=== PATIENT | female | born 1940 | race Caucasian/White ===

== ENCOUNTER 2022-03-12 18:25 | Observation (INO) | payer MEDICARE, SELFPAY ==
[2022-03-12] VITALS (18 sets, daily range): BP systolic 104–126; BP diastolic 37–98; PULSE 60–70; RESP 14–23; TEMP 36.4–37.1; O2SAT 91–100; BMI 39.4
--- NOTE | ~2022-03-12 | CT_ITS ---
EXAMINATION: CT brain wo con DATE: 03/12/2022 18:48 INDICATION: Left facial weakness. Cerebral vascular accident. TECHNIQUE: Computed tomography (CT) of the head was performed without intravenous contrast. The mA wa s adjusted according to patient size. Iterative reconstruction technique was employed. The dose-lengt h product was 605.33 mGy-cm. COMPARISON: None FINDINGS: There are scattered areas of low attenuation in the cerebral white matter. There is no intr acranial hemorrhage, acute infarction, or abnormal intracranial mass lesion. The ventricles are christina l in size. There is mild mucosal thickening in the paranasal sinuses. There are likely changes of ocu lar lens replacement surgeries. The mastoid air cells are normal. IMPRESSION: 1. Mild nonspecific cerebral white matter disease, which likely represents chronic small vessel ische arnie disease. Reviewed, dictated and finalized at location A. IMPRESSION: 1. Mild nonspecific cerebral white matter disease, which likely represents belt turner halie small vessel ischemic disease.
--- NOTE | ~2022-03-12 | XR_ITS ---
EXAMINATION: XR chest 1V portable DATE: 03/12/2022 19:04 INDICATION: Cerebrovascular accident. TECHNIQUE: A single frontal view of the chest was obtained. COMPARISON: None. FINDINGS: Calcified right lung nodules and calcified right hilar lymph nodes are consistent with old granulomas disc disease. There is a 1 cm nodule in right midlung zone. No pleural effusion or pneumot horax. There is mild elevation of right hemidiaphragm. The heart size is normal. There are changes of aortic valve replacement and coronary artery bypass grafting. There is a left chest wall pacer with leads in the right atrium and right ventricle. Retained epicardial pacer wires are noted. IMPRESSION: 1. 1 cm nodule in right midlung zone, which is indeterminate for malignancy. Noncontrast chest CT is recommended. Reviewed, dictated and finalized at location A. IMPRESSION: 1. 1 cm nodule in right midlung zone, which is indeterminate for malignancy. N oncontrast chest CT is recommended.
--- NOTE | ~2022-03-12 | CT_ITS ---
. EXAMINATION: CTA brain carotid DATE: 03/12/2022 19:54 INDICATION: Left facial weakness. TECHNIQUE: Computed tomographic angiography (CTA) of the head was performed with 100 mL Omnipaque-350 intravenous contrast. CTA of the neck was performed with intravenous contrast. Automated exposure co ntrol and iterative reconstruction technique were employed. The dose-length product was 980.92 mGy-cm . Maximum intensity projection and volume rendered 3D-reconstructions were created by the [employer] t on a separate workstation. COMPARISON: Head CT 03/12/2022 FINDINGS: HEAD CTA: There are scattered areas of low attenuation in the cerebral white matter. There is no intr acranial hemorrhage, acute infarction, or abnormal intracranial mass lesion. The ventricles are christina l in size. There are likely changes of ocular lens replacement surgeries. There is mild mucosal thick ening in the paranasal sinuses. The mastoid air cells are normal. Left vertebral artery is dominant. There is no significant stenosis of basilar artery or the posterior cerebral arteries. The posterior communicating arteries are normal. There is no significant stenosis of the intracranial internal tan tid arteries or anterior or middle cerebral arteries. Anterior communicating artery is normal. There is no aneurysm. NECK CTA: The visualized portions of the lung apices demonstrate bandlike scarring in right upper lob e. There is mild mediastinal lymphadenopathy, likely reactive. There is no significant stenosis of th e vertebral arteries. There is plaque in the proximal internal carotid arteries. There is 6% stenosis of the proximal right internal carotid artery relative to normal distal artery lumen diameter (NASCE T criteria). There is 0% stenosis of the proximal left internal carotid artery relative to normal dis artery lumen diameter. There is severe cervical spondylosis. There is a chronic burst fracture of T3. IMPRESSION: 1. Mild nonspecific cerebral white matter disease, which likely represents chronic small vessel ische arnie disease. 2. No aneurysm or significant intracranial arterial stenosis. 3. 6% stenosis of the proximal right internal carotid artery relative to normal distal artery lumen d iameter (NASCET criteria). 4. 0% stenosis of the proximal left internal carotid artery relative to normal distal artery lumen d iameter. Reviewed, dictated and finalized at location A. IMPRESSION: 1. Mild nonspecific cerebral white matter disease, which likely represents under water assistant halie small vessel ischemic disease. 2. No aneurysm or significant intracranial arterial stenosis. 3. 6% stenosis of the proximal right internal carotid artery relative to normal distal artery lumen diameter (NASCET criteria). 4. 0% stenosis of the proximal left internal carotid artery relative to normal distal artery lumen diameter.
--- NOTE | 2022-03-12 18:36 | ECG_ITS ---
Measurements Intervals [place] Rate: 61 P: [place]: 0 QRS: -66 QRSD: 183 T: 85 QT: 504 QTc: 510 Interpretive Statements PROBABLE ELECTRONIC VENTRICULAR PACEMAKER ABNORMAL RHYTHM ECG NO PREVIOUS ECG AVAILABLE FOR COMPARISON Electronically Signed On 03-13-2022 13:34:50 CDT by Joycelyn Villagomez M.D.
[2022-03-12 18:37] LABS: Glucose Point of Care 148 mg/dl (65-105)
[2022-03-12 19:05] LABS: Basophils Absolute Auto 0.1 K/mm3 (0.0-0.1); Basophils Percent Auto 0.7 % (0.2-1.2); Eosinophils Absolute Auto 0.4 K/mm3 (0-0.3); Eosinophils Percent Auto 4.8 % (0-4.4); Hematocrit 32.6 % (37.0-47.0); Hemoglobin 10.4 g/dL (12.0-15.0); Immature Granulocyte Absolute 0.11 K/mm3 (0.00-0.031); Immature Granulocyte Percent A 1.3 % (0-0.5); Lymphocytes Absolute Auto 1.65 K/mm3 (0.9-3.2); Lymphocytes Percent Auto 19.3 % (18.3-44.2); Mean Corpuscular HGB Conc 31.9 g/dl (32-36); Mean Corpuscular Hemoglobin 29.6 pg (26-34); Mean Corpuscular Volume 92.9 fl (80-100); Mean Platelet Volume 9.5 fl (7.4-10.4); Monocytes Absolute Auto 0.9 K/mm3 (0.1-0.6); Monocytes Percent Auto 10.3 % (2.6-8.5); Neutrophils Absolute Auto 5.5 K/mm3 (1.3-6.7); Neutrophils Percent Auto 63.6 % (45.5-73.1); Platelet Count Result 267 k/mm3 (150-375); Red Blood Count 3.51 M/mm3 (4.2-5.4); Red Cell Distribution Width 14.1 % (11.5-14.5); White Blood Count 8.6 K/mm3 (4.5-10.0)
[2022-03-12 19:16] LABS: Alanine Aminotransferase 23 U/L (6-35); Albumin Level 3.2 g/dL (3.5-5.1); Alkaline Phosphatase 95 U/L (38-126); Anion Gap 9 mmol/L (8-16); Aspartate Amino Transferase 63 U/L (14-36); Bilirubin,Total 0.8 mg/dL (0.2-1.3); Blood Urea Nitrogen 22 mg/dL (7-17); Calcium 8.7 mg/dL (8.4-10.2); Carbon Dioxide 24 mmol/L (22-30); Chloride 100 mmol/L (98-107); Estimated Glomerular Filt Rate 48; Glucose 134 mg/dL (65-110); Potassium 4.5 mmol/L (3.4-5.0); Sodium 133 mmol/L (137-145)
--- NOTE | 2022-03-12 19:20 | PC.NURSE ---
Report received from YOSELYN Reynaga. Assumed care of patient at this time.
[2022-03-12 19:22] LABS: INR 1.1; Prothrombin Time 13.3 Seconds (11.1-14.7)
--- NOTE | 2022-03-12 19:22 | ED.GENADULT ---
HPI - General Adult General Chief complaint: Neuro Symptoms/Deficit Stated complaint: RESOLVED TIA? Time Seen by Provider: 03/12/22 18:58 History of Present Illness HPI narrative: 81-year-old female present to the emergency department for evaluation of some left-sided facial droop. Patient does have a prior history of TIA approximately 10 years ago. Patient resides at a local senior care. When the nurse came to check on the patient she noticed that the patient did have a minor left-sided facial droop. Patient was unaware of the facial droop. This occurred at approximately 430. When patient's family arrived they also agreed the patient does have some facial droop. No other neurologic deficit was noted. Patient denies any complaints. Patient does have some weakness of the left lower leg secondary to pain from a recent hip replacement. Patient states this morning she did receive a full baby aspirin from a senior care. Patient does have history of previous TIA and does have history of coronary artery disease. Related Data Allergies Allergy/AdvReac Type Severity Reaction Status Date / Time meperidine [From Demerol] Allergy Unknown Verified 03/09/22 17:27 Review of Systems Review of Systems: CONSTITUTIONAL: Denies fever, chills, or sweats. EYES: Denies visual changes, redness, or discharge. ENT: Denies rhinorrhea, congestion, sore throat, or otalgia. CARDIOVASCULAR: Denies chest pain, palpitations, or edema. RESPIRATORY: Denies cough or dyspnea. GASTROINTESTINAL: Denies abdominal pain, nausea, vomiting, or diarrhea. GENITOURINARY: Denies dysuria or hematuria. SKIN: Denies rash or itching. MUSCULOSKELETAL: Denies back pain, joint pain, or myalgia. NEUROLOGIC: See HPI [facility] Past Medical History Medical History (Updated 03/12/22 @ 22:11 by Kenny Gary MD) Anemia CAD (coronary artery disease) CKD (chronic kidney disease) GERD (gastroesophageal reflux disease) HLD (hyperlipidemia) HTN (hypertension) Osteoarthritis (arthritis due to wear and tear of joints) Surgical History Surgical History (Updated 03/10/22 @ 10:35 by Teto Shin MD) H/O aortic valve replacement Social History Social History Smoking status: Never smoker Exam Narrative: APPEARANCE: Well appearing, no pain, no distress, well-nourished. HEAD: normocephalic, atraumatic. EYES: PERRLA/EOMI, conjunctivae clear. NOSE: Normal no drainage EARS:TMS clear with good light reflex. NECK: Supple. No adenopathy, no masses. RESPIRATORY: Airway patent, respirations nonlabored. Clear to auscultation bilaterally, no rales, rhonchi, wheezing. CARDIOVASCULAR: Regular rate and rhythm without murmurs rubs or gallops. ABDOMINAL: Soft, nontender, nondistended, normal bowel sounds MUSCULOSKELETAL: Moves all extremities. Strength/ROM intact, No edema, No calf tenderness. NEURO: Alert. Cranial nerves II through XII intact. Minimal left-sided facial droop associated with the left lateral mouth. Patient has a normal smile but when her face is at rest patient does have decreased wrinkles around the left side of the mouth. Otherwise intact exam. SKIN: Warm, dry. Normal Color PSYCHIATRIC: Normal affect/mood. Course Course Emergency Course: Patient does still have very minimal left-sided facial droop which manifests as decreased wrinkles on the left side of her mouth. When patient smiles she has no obvious deficit. Family had requested transfer to [place]. I discussed the case with Dr Lira and patient was accepted for transfer because they felt that our facility would be able to do the necessary TIA work-up. Patient was updated on the feedback from [facility] and they were comfortable with the plan for admission at our facility. Neurology was consulted. Case was discussed with the hospitalist and patient was accepted for admission. Vital Signs Vital signs: Vital Signs Temperature 98.7 F 03/12/22 18:31 Pulse Rate
[2022-03-12 19:28] LABS: Troponin I 0.016 ng/mL (0.000-0.034)
--- NOTE | 2022-03-12 19:41 | PC.NURSE ---
Patient states she would like to be transferred to [facility] for continuation of care. ERP notified.
--- NOTE | 2022-03-12 22:02 | ADMGEN ---
This patient, Radha Campos, was admitted to 2 Medical Room 259-. Patient/family oriented to hospital policies and general routines including ID bracelet, bed and alarms, visiting hours, pain management, procedures, bathroom and other care routines, personal items, smoking policy, room service/diet, and visiting hours. Information on how to activate the Rapid Response Team has been discussed. Patient/Family are encouraged to report perceived risks to care and to ask questions if they do not understand what they are told or what they should do.
[2022-03-13 05:35] VITALS: BP 129/42; PULSE 60; RESP 16; TEMP 36.4; O2SAT 97
[2022-03-13 08:00] VITALS: PULSE 68
--- NOTE | 2022-03-13 08:56 | PM.IMHP ---
H&P: HPI History of Present Illness Date/Time: 03/13/22 09:30 Chief Complaint: Left-sided facial droop Narrative: patient is an 81-year-old female with past medical history CABG, pacemaker insertion, AVR, bilateral total knee replacement, left hip replacement, hyperlipidemia who [facility] before evaluation of left-sided facial droop. It was reported when the nurse came to check on the patient she noticed that the patient did have a minor left-sided facial droop. Last known normal was approximately 1630. When I went to see the patient she stated that she is back to her normal self and she feels fine. After prying more more information out of her it sounds like her doctors do not agree on her medications. She stated that the doctor who did her hip does not agree with statins and believes in a high protein diet with supplements. However patient was restarted back on her atorvastatin. The incomplete that she had was she states that she has sinuses however she has been dealing with this for very long time. She denies any chest pain, shortness of breath, nausea, vomiting, diarrhea, constipation, weakness, fatigue, visual changes, hearing changes, dizziness, lightheadedness, syncope or falls. Patient did state that her hip does hurt and she can feel her hip pain to her knee. She states that she does not feel any different has not felt any different. NIH score is 0. X-ray did show 1 cm nodule in the right midlung zone however the patient stated that she has had multiple scans and knew about the lump and was told his from the scar tissue from the radiation when she had breast cancer. Her son check was present and had no questions neurology did come through and would like her to have the MRI as long as we get all the information together to ensure that her hardware is MRI approved. Patient is ready to go and would like to go back to rehab. Rehab intake her however it probably will be till tomorrow since she is going to probably need to get the MRI. Patient is being admitted to the hospital service under observation. Review of Systems Review of Systems: All systems reviewed & are unremarkable except as noted in HPI and below PMFSH Past Medical History Medical History Anemia Breast cancer CAD (coronary artery disease) CKD (chronic kidney disease) GERD (gastroesophageal reflux disease) HLD (hyperlipidemia) HTN (hypertension) Osteoarthritis (arthritis due to wear and tear of joints) Surgical History Surgical History H/O aortic valve replacement History of intestinal surgery History of left hip replacement History of permanent cardiac pacemaker placement History of total left knee replacement History of total right knee replacement S/P CABG (coronary artery bypass graft) Family History Family History (Updated 03/13/22 @ 12:40 by JULIO Perry) Mother Diabetes mellitus Heart disease Social History Social History Social History: Patient currently lives at home. Patient has 8 children. Patient's 27 years ago from heart attack. She does elect her son Hung to be her surrogate and her daughter Chantelle phone [phone]. Patient would like to be a full code at this time and would be okay with blood transfusions. Smoking status: Never smoker Alcohol intake: never Substance use: never Living arrangements: alone Occupation/Education: retired Additional occupation/education comments: [employer] jobs including bookstore attendant and [employer] Gender identity (if verbalized by the patient): Female Sexual Orientation (if Verbalized by the Patient): Straight or Heterosexual Spiritual care concerns: Yes ( Taoist) Agree to blood products: Yes Meds Home Medications and Allergies Home Medication
--- NOTE | 2022-03-13 09:32 | WPDNEURCNPN ---
Assessment and Plan Assessment and plan (1) TIA (transient ischemic attack): Code(s): G45.9 - Transient cerebral ischemic attack, unspecified Status: Acute Assessment and Plan: Radha Campos is a 81 year old female with a history of CAD s/p CABG, pacemaker, CKD, HTN, HLD who presented [facility] due to concerns for left facial droop. Patient and her son feel that her face looks normal. I noted subtle left nasolabial fold flattening, but patient reports this is chronic. No other focal neurological deficits were noted on exam. - Not sure if patient's pacemaker is MRI compatible; if it is, would get MRI w/o contrast - Surface echo with bubble study - Check HgbA1c, lipid panel - EKG completed - Continue ASA 81mg - Resume statin Consult date: 03/13/22 Time Seen: 09:32 Reason for consult: TIA/stroke HPI: Radha Campos is a 81 year old female with a history of CAD s/p CABG, pacemaker, CKD, HTN, HLD who presented from [facility] due to concerns for left facial droop. Patient was at [facility] after left hip replacement. Yesterday evening around 430pm, she was noted to have left facial droop by her nurse. Patient reports that she otherwise felt fine and did not notice any significant asymmetry. She had no other focal weakness, numbness, speech change. She was taken to [facility] ED where she had a CT which showed chronic small vessel disease. CTA head and neck showed no evidence of large vessel occlusion. Patient did not receive tPA due to being resolving minor symptoms. She was admitted for work-up for TIA/stroke. Patient reports that she had a TIA about 15 years ago. She described it as numbness on the left side of her face and her left leg. She saw her PCP and was told her BP was very high at that time. She is not aware of any other work-up that was done at that time. She does take a daily aspirin, but reported that she was recently taken off her statin during her rehab stay. ' Patient feels at baseline this morning. Patient's son stopped by and said that her face appears normal to him. She has a [employer] pacemaker that was placed 2 years ago. Unclear about MRI compatibility. Review of Systems Constitutional: Constitutional: Denies fatigue and Denies weakness Eyes: Eyes: Reports no additional eye complaints ENT: Reports Normal hearing present and Reports nasal congestion Cardiovascular: Cardiovascular: Reports no additional cardiovascular complaints Respiratory: Respiratory: Reports no additional respiratory complaints Gastrointestinal: Gastrointestinal: Reports no additional gastrointestinal complaints Genitourinary: Genitourinary: Reports no additional female genitourinary complaints Musculoskeletal: Musculoskeletal: Reports as per HPI and Reports arthralgias Integumentary/Breasts: Skin/Breast: Reports system reviewed and no additional complaints, except as docu Neurologic: Reports as per HPI Psychiatric: Psychiatric: Reports no additional psychiatric complaints [facility] Past Medical History Medical History Anemia CAD (coronary artery disease) CKD (chronic kidney disease) GERD (gastroesophageal reflux disease) HLD (hyperlipidemia) HTN (hypertension) Osteoarthritis (arthritis due to wear and tear of joints) Surgical History Surgical History H/O aortic valve replacement History of left hip replacement History of permanent cardiac pacemaker placement History of total left knee replacement History of total right knee replacement S/P CABG (coronary artery bypass graft) Social History Social History Smoking status: Never smoker Alcohol intake: never Substance use: never Spiritual care concerns: No Meds Home Medications and Allergies Home Medications Medication Instructions Recorded Confirmed Type L.ac
[2022-03-13] MEDS: ASCORBIC ACID 500 MG TABLET 1000 MG PO (09:46)
[2022-03-13] MEDS: ENOXAPARIN 40 MG/0.4 ML SYRINGE SUB-Q (09:47)
[2022-03-13] MEDS: BUMETANIDE 1 MG TABLET PO (09:47)
[2022-03-13] MEDS: PANTOPRAZOLE 40 MG TABLET PO (09:47)
[2022-03-13] MEDS: ASPIRIN 325 MG TABLET PO (09:47)
[2022-03-13] MEDS: ATORVASTATIN 40 MG TABLET 80 MG PO (09:47)
[2022-03-13 12:00] VITALS: PULSE 61
[2022-03-13 14:32] LABS: Cholesterol 176 mg/dL (0-200); HDL Direct 21 mg/dL; Triglycerides 180 mg/dL (<150)
[2022-03-13 14:43] LABS: LDL Cholesterol Direct 107 mg/dL
--- NOTE | 2022-03-13 14:45 | PM.SD2 ---
Same Day Admit/Disch: HPI History of Present Illness Chief complaint: TIA/CVA Narrative: Radha Campos is a 81 year old female with past medical history CABG, pacemaker insertion, AVR, bilateral total knee replacement, left hip replacement, hyperlipidemia who [facility] before evaluation of left-sided facial droop.? It was reported when the nurse came to check on the patient she noticed that the patient did have a minor left-sided facial droop.? Last known normal was approximately 1630.? When I went to see the patient she stated that she is back to her normal self and she feels fine.? After prying more more information out of her it sounds like her doctors do not agree on her medications.? She stated that the doctor who did her hip does not agree with statins and believes in a high protein diet with supplements.? However patient was restarted back on her atorvastatin.? The incomplete that she had was she states that she has sinuses however she? has been dealing with this for very long time.? She denies any chest pain, shortness of breath, nausea, vomiting, diarrhea, constipation, weakness, fatigue, visual changes, hearing changes, dizziness, lightheadedness, syncope or falls.? Patient did state that her hip does hurt and she can feel her hip pain to her knee.? She states that she does not feel any different has not felt any different.? NIH score is 0.? X-ray did show 1 cm nodule in the right midlung zone however the patient stated that she has had multiple scans and knew about the lump and was told his from the scar tissue from the radiation when she had breast cancer.? Her son check was present and had no questions neurology did come through and would like her to have the MRI as long as we get all the information together to ensure that her hardware is MRI approved.? Patient is ready to go and would like to go back to rehab.? Rehab intake her however it probably will be till tomorrow since she is going to probably need to get the MRI. ? Patient is being admitted to the hospital service under observation. [facility] Past Medical History Medical History Anemia Breast cancer CAD (coronary artery disease) CKD (chronic kidney disease) GERD (gastroesophageal reflux disease) HLD (hyperlipidemia) HTN (hypertension) Osteoarthritis (arthritis due to wear and tear of joints) Surgical History Surgical History H/O aortic valve replacement History of intestinal surgery History of left hip replacement History of permanent cardiac pacemaker placement History of total left knee replacement History of total right knee replacement S/P CABG (coronary artery bypass graft) Family History Family History Mother Diabetes mellitus Heart disease Social History Social History Social History: Patient currently lives at home. Patient has 8 children. Patient's 27 years ago from heart attack. She does elect her son Hung to be her surrogate and her daughter Chantelle phone [phone]. Patient would like to be a full code at this time and would be okay with blood transfusions. Smoking status: Never smoker Alcohol intake: never Substance use: never Living arrangements: alone Occupation/Education: retired Additional occupation/education comments: [employer] jobs including bookstore attendant and [employer] Gender identity (if verbalized by the patient): Female Sexual Orientation (if Verbalized by the Patient): Straight or Heterosexual Spiritual care concerns: Yes ( Zoroastrianism) Agree to blood products: Yes Same Day Admit/Disch: Med Pre-admit Medications Home Medications Medication Instructions Recorded Confirmed Type L.acidophilus-L.bulgar-B.bifid-S.thermoph 1 tablet PO DAILY 03/12/22
[2022-03-13 15:06] VITALS: BP 118/51; PULSE 61; RESP 20; TEMP 36.8; O2SAT 100
== END 2022-03-13 16:08 ==
LOC: ANHED 19:19 → ANH2MED 21:42
PROVIDERS: Admitting Provider Internal Medicine; Emergency Provider Emergency Medicine; PCP Internal Medicine; Visit Provider Nurse Practitioner
DX: G45.9 Transient cerebral ischemic attack, unspecified (principal); E78.5 Hyperlipidemia, unspecified; I13.10 Hypertensive heart and chronic kidney disease without heart failure, with stage 1 through stage 4 chronic kidney disease, or unspecified chronic kidney disease; N18.9 Chronic kidney disease, unspecified; I25.10 Atherosclerotic heart disease of native coronary artery without angina pectoris; Z86.73 Personal history of transient ischemic attack (TIA), and cerebral infarction without residual deficits; K21.9 Gastro-esophageal reflux disease without esophagitis; M19.90 Unspecified osteoarthritis, unspecified site; R90.82 White matter disease, unspecified; R29.700 NIHSS score 0; D64.9 Anemia, unspecified; R91.1 Solitary pulmonary nodule; Z95.2 Presence of prosthetic heart valve; Z95.1 Presence of aortocoronary bypass graft; Z95.0 Presence of cardiac pacemaker; Z96.642 Presence of left artificial hip joint; Z96.653 Presence of artificial knee joint, bilateral; Z85.3 Personal history of malignant neoplasm of breast; Z92.3 Personal history of irradiation; Z79.82 Long term (current) use of aspirin; Z79.899 Other long term (current) drug therapy; Z82.49 Family history of ischemic heart disease and other diseases of the circulatory system
CPT/HCPCS: 36415; 70450; 70496; 70498; 71045; 80053; 80061; 82948; 84484; 85025; 85610; 85730; 93005; 96372; 99285; A9270; G0378; J1650; Q9967